=== PATIENT | female | born 1990 ===

== ENCOUNTER 2017-09-08 12:18 | Emergency (ER) | payer OTHER ==
[2017-09-08 09:37] VITALS: BMI 34.7
[2017-09-08 14:49] LABS: BASO % 0.1 % (0.0-2.0); EOS # 0.1 K/uL (0.0-0.7); EOS % 0.7 % (0.0-4.0); HEMOGLOBIN 10.5 g/dL (12.0-16.0); LYMPH # 2.5 K/uL (1.0-4.3); MEAN CELL VOLUME 86.8 fl (81.0-99.0); MEAN CORPUSCULAR HEMOGLOBIN 27.7 pg (27.0-31.0); MEAN CORPUSCULAR HGB CONC 31.9 g/dL (33.0-37.0); MEAN PLATELET VOLUME 9.8 fl (7.2-11.7); MONO % 8.4 % (0.0-10.0); NEUT # 8.3 K/uL (1.8-7.0); NEUT % 69.8 % (50.0-75.0); NRBC % 0.1 % (0.0-0.0); RBC 3.79 Mil/uL (3.80-5.20); RED CELL DISTRIBUTION WIDTH 14.5 % (11.5-14.5); WHITE BLOOD COUNT 11.9 K/uL (4.8-10.8)
[2017-09-08 14:59] LABS: SQUAMOUS EPITHIAL 1 /hpf (0-5); URINE BACTERIA RARE (<OCC); URINE BILIRUBIN NEGATIVE (NEGATIVE); URINE BLOOD NEGATIVE (NEGATIVE); URINE CLARITY SLIGHTY-CLOUDY (Clear); URINE COLOR YELLOW (YELLOW); URINE GLUCOSE (UA) NEG (Normal); URINE LEUKOCYTE ESTERASE NEG Leu/uL (Negative); URINE PROTEIN NEGATIVE (NEGATIVE); URINE UROBILINOGEN 0.2-1.0 mg/dL (0.2-1.0)
[2017-09-08 15:03] LABS: ALB/GLOB RATIO 0.9 (1.0-2.1); ALBUMIN 3.3 g/dL (3.5-5.0); ALT/SGPT 26 U/L (9-52); AST/SGOT 22 U/L (14-36); BLOOD UREA NITROGEN 6 mg/dl (7-17); CALCIUM 8.6 mg/dL (8.4-10.2); GFR AFRICAN-AMERICAN > 60; GFR NON-AFRICAN AMERICAN > 60
[2017-09-09 16:44] VITALS: BP 110/65; PULSE 90; TEMP 98.1; O2SAT 99
--- NOTE | 2017-09-10 19:15 | OBHP ---
Datetime: 09/08/2017 14:00 IP Adm Impression: Term, intrauterine ; No Active Labor IP Admit Plan: Observation/Evaluation; Discharge home Admit Comment, IP Provider: CC/HPI: Pt. is 27 y.o. at 37.2 weeks GA here today for evaluation of nausea and left upper quadrant p ain described as cramps which she experienced for several minutes while at work at [employer] a s R.N. Pt. states she was evaluated in the E.R. at [facility] and had an episode of Hypotension at 86/58 and was sent to [facility] for further evaluation. Pt. states the pain has not recurred since arrival to [facility] in [place]. Pt. states nausea has also resolved. Pt. states taking PNV daily and to date has been uncomplicated. ROS: Pt. denies any vaginal bleeding, dysuria, hematuria, loss of water, or contractions. Pt. also stat es baby is moving frequently. Pt. denies any headache, chest pain, dyspnea, or abdominal pain. PMHx: none PSH: none Meds: PNV Allergies: NKDA PMD: DR. Nj Objective: See Physical Exam A/P: 27 y.o. at 37.2 weeks GA with normal non-stress test 1- Pt. progress discussed with Dr. Nj and agrees with following plan and discharge 2- CBC, CMP, and UA ordered labs reviewed and WNL 3- Pt. tolerating PO fluids and solids 4- Pain has not recurred 5- Pt. to be discharged to follow up with Dr. Mccollum as planned on September 14- Labor precautions given Case discussed with OB attending DR. Shelton Case discussed with PMD Dr. Nj via telephone Aaron Hoyt PGY-3 Addendum: I saw patient at presentation and follow-up. Both maternal well-being and well-being reassur ing at this time. All patient questions answered. Patient discharged to home and will follow-up with primary physician as already scheduled. Nikita Pelvic Type - PN: Not Done Extremities - PN: Normal Abdomen - PN: Normal Back - PN: Normal Breast - PN: Not Done Lungs - PN: Normal Heart - PN: Normal Thyroid - PN: Normal Neurologic - PN: Normal HEENT - PN: Normal General - PN: Normal FHR - Baseline A Provider: 140 EGA AdmitDate IP: 37.2 Vital Signs Provider: Reviewed; Within Normal Limits IP Chief Complaint: Illness NICHD Variability Prov Fetus A: Moderate 6-25bpm NICHD Accel Fetus A IP Provider: [id number] NICHD Decel Fetus A IP Provider: None Genitourinary Exam: Not Done DTRs - PN: Normal
== END 2017-09-08 15:23 | disposition home or self-care (01) ==
LOC: H.EROB2 12:18
DX: O47.1 False labor at or after 37 completed weeks of gestation (principal); O26.93 Pregnancy related conditions, unspecified, third trimester; R10.2 Pelvic and perineal pain; R11.0 Nausea; Z3A.37 37 weeks gestation of pregnancy